=== PATIENT | male | born 1990 | race African-American/Black ===

== ENCOUNTER 2020-03-15 09:40 | Emergency (ER) | payer SELFPAY ==
[2020-03-15 09:41] VITALS: BP 150/89; PULSE 78; RESP 16; TEMP 36.7; O2SAT 97; BMI 35.5
--- NOTE | 2020-03-15 09:59 | EKG12_ITS ---
Test Reason : Blood Pressure : / mmHG Vent. Rate : 063 BPM Atrial Rate : 063 BPM P-R Int : 150 ms QRS Dur : 096 ms QT Int : 420 ms P-R-T Axes : 051 020 -04 degrees QTc Int : 429 ms Normal sinus rhythm Normal ECG Confirmed by ANTHONY BURKS, KYMBERLY ([id number]), editorial clerk MARSHA GALARZA ([id number]) on 03/20/2020 11:06:37 AM Referred By: EDENILSON Confirmed By:KYMBERLY CRUZ MD
--- NOTE | 2020-03-15 10:06 | NURSING ---
NO OLD EKGS
[2020-03-15] MEDS: 0.9% Normal Saline 1,000 ML 1000 ML IV (10:09)
[2020-03-15 10:10] LABS: Absolute Lymphocyte Count 3.03 X10^3/uL (0.83-4.51); Absolute Neutrophil Count 3.8 X10^3/uL (2.0-7.7); Basophil# 0.05 X10^3/uL; Basophil% 0.6 % (0-1); Eosinophil# 0.14 X10^3/uL; Eosinophils% 1.8 % (0-5); Hemoglobin 14.9 g/dL (13.0-16.5); Lymphocyte # 3.03 X10^3/ul (4.0); Lymphocyte % 38.8 % (19-41); Mean Corp Hgb Conc 33.9 g/dL (32-36); Mean Corpuscular Hgb 30.8 pg (27.0-32.0); Mean Corpuscular Volume 90.9 fL (80-94); Mean Platelet Vol. 10.1 fl (6.2-12.0); Monocyte# 0.72 X10^3/uL; Monocyte% 9.2 % (0-10); NRBC Flagged by Analyzer 0 % (0-5); Neutrophil # 3.83 X10^3/uL (2.7-7.7); Neutrophil % 49.2 % (47-70); Platelet Count 219 K/mm3 (150-450); RBC Distribution Width CV 13.2 % (11.6-14.6); RBC Distribution Width SD 43.6 fl (35.1-43.9); Red Blood Count 4.84 M/mm3 (4.6-6.2); White Blood Count 7.8 K/mm3 (4.4-11.0)
[2020-03-15 10:27] LABS: Anion Gap 5 (5-15); BUN 17 mg/dL (7-18); BUN/Creat Ratio 14.4 RATIO (10-20); Calcium,Total 8.9 mg/dL (8.5-10.1); Chloride 107 mmol/L (98-107); Creatinine, Serum 1.18 mg/dL (0.70-1.30); EST Glomerular Filtration Rate 76 mL/min (>60); Est Glom Filt Rate - Afr Amer 93 mL/min (>60); Estimated Creatinine Clearance 102.51 ml/min; Glucose 96 mg/dL (74-106); Potassium 3.8 mmol/L (3.5-5.1); Sodium Level 138 mmol/L (136-145)
--- NOTE | 2020-03-15 10:45 | RAD_ITS ---
STUDY: X-RAY CHEST REASON FOR EXAM: Male, 29 years old. Chest pain and l arm pain and numbness on and off for a couple months TECHNIQUE: Single AP portable view of the chest. COMPARISON: None. FINDINGS: EKG electrodes are seen. The lungs are clear and expanded. There is no demonstrated pleural abnormality. Normal size heart. Normal mediastinum and [place]. Normal visualized pulmonary arteries. Normal visualized aortic arch and descending thoracic aorta. Normal visualized thoracic spine. Normal visualized ribs, clavicles, and shoulders. There is no demonstrated abnormality of the visualized soft tissue structures of the upper abdomen. RAD/Chest 1 View (Portable) IMPRESSION: Normal x-ray examination of the chest. Electronically Signed: Mark Corea, at 11:10 EDT , Service support ,
[2020-03-15 10:47] VITALS: BP 150/116; PULSE 74; RESP 16; O2SAT 99
[2020-03-15 11:19] VITALS: BP 160/100; PULSE 75; RESP 16; O2SAT 98
--- NOTE | 2020-03-15 11:48 | ED.VISSUMM ---
- ER Visit Summary Date of Service: 03/15/20 Chief Complaint: Chest pain History of Present Illness: The patient is a 29 M with no primary care physician. He reports that he has chest pain that began approximately 3 months ago. Intermittent pain lasting approximately 10 seconds at a time in the left chest that radiates to the left shoulder. He describes the pain is sharp. Is 7-10 at worst. Is pain-free currently. Is worsened by nothing. States that it does not seem to be brought on by exertion. It is relieved by movement of his left shoulder. He denies any associated nausea, vomiting, diaphoresis, or shortness of breath. Physical Examination: Vitals: Stable. Afebrile. General: Well-nourished and well-developed. Head: Normocephalic atraumatic. Neck: Supple, no lymphadenopathy. No JVD. Nontender. Cardiovascular: Regular rate and rhythm. No murmurs. Respiratory: No respiratory distress. Clear to auscultation bilaterally. Abdominal: Soft, nontender, nondistended, normal bowel sounds. No guarding, rebound, or peritoneal signs. Back: Nontender. Extremities: Nontender, no edema. Skin: Normal color, no rash. Neurologic: Alert and oriented ?3. Cranial nerves II through XII are intact. Normal strength and sensation. Psych: Normal affect. Test Results: EKG is sinus at [address] changes. Troponin is negative. Chem-7 is normal. CBC is normal. Chest x-ray shows no acute disease. Emergency Department Course and Treatment: Patient is resting comfortably. He is had no pain while here. Treatment Plan: Patient's pain is very atypical. He has no risk factors for coronary artery disease. At this time I feel that he is a suitable candidate for further outpatient evaluation. He will be discharged instructions follow-up Dr. Subramanian in 1 week for another exam. Return to the emergency department for any worsening symptoms. Disposition: To home in improved and stable condition. Impression: 1. Atypical chest pain. This note was generated with [employer] dictation software. It may contain incorrect words, spelling, and punctuation that were not noted in review of the chart prior to signing ED Disposition - Plan for ED Patient: Disposition: Home or Assisted Living Instructions: ED Chest Pain Atypical Unkn Cause Referrals: Colten Tanner MD [STAFF PHYSICIAN] - 1 Week
[2020-03-15 12:17] VITALS: BP 145/90; PULSE 85; RESP 12; O2SAT 98
== END 2020-03-15 12:20 | disposition home or self-care (01) ==
PROVIDERS: Emergency Provider Emergency Medicine
DX: R07.89 Other chest pain (principal); Z72.0 Tobacco use
CPT/HCPCS: 71045; 80048; 84484; 85025; 93005; 99285; A4216

== ENCOUNTER 2023-03-16 10:51 | Emergency (ER) | payer SELFPAY ==
[2023-03-16 10:52] VITALS: BP 186/99; PULSE 107; RESP 18; TEMP 36.5; O2SAT 99; BMI 31.4
[2023-03-16] MEDS: Morphine 4 MG/ML Syringe IM (11:29)
--- NOTE | 2023-03-16 11:37 | ED.VIS.DENTA ---
HPI <YELITZA Peguero - Last Filed: 03/16/23 20:25> History of Present Illness Chief Complaint: Dental Narrative Narrative: Patient presenting today with dental pain. He reports that he has a existing dental fracture to his right maxillary first molar and today he was chewing on a steak bone and fractured it further. He does have a dentist appointment tomorrow morning. He denies any fever/chills. PFSH <YELITZA Peguero - Last Filed: 03/16/23 20:25> PFSH Medical History No acute medical problems Home Medications naproxen 500 mg tablet (Naprosyn) 500 mg PO BID PRN pain 2 days #4 tabs 03/16/23 [Rx Last Taken Unknown] oxycodone-acetaminophen 5 mg-325 mg tablet (Percocet) 1 tab PO Q6H PRN pain 2 days #6 tabs 03/16/23 [Rx Last Taken Unknown] Allergy/AdvReac Type Severity Reaction Status Date / Time No Known Allergies Allergy Verified 03/16/23 11:01 Social History Smoking Status: Current every day smoker tobacco type: cigarettes ROS <YELITZA Peguero - Last Filed: 03/16/23 20:25> ROS ED Constitutional Constitutional ED: Denies chills or fever(s) Cardiovascular Cardiovascular: Denies chest pain Respiratory/Chest Respiratory/Chest: Denies cough or dyspnea Gastrointestinal Gastrointestinal: Denies abdominal pain, nausea or vomiting Musculoskeletal Musculoskeletal: Denies arthralgias or myalgias Integumentary Denies abscess Neurologic Neurologic: Denies weakness EXAM <YELITZA Peguero - Last Filed: 03/16/23 20:25> Physical Exam Const Vital Signs: 03/16/23 10:52 Temperature 97.7 F L Temperature Source Temporal Pulse Rate 107 H Respiratory Rate 18 Blood Pressure 186/99 H Blood Pressure Mean 128 Pulse Ox 99 Oxygen Delivery Method Room Air Positive well nourished, well developed and no apparent distress General Appearance ED: well developed HEENT Reports normocephalic and head/scalp atraumatic HEENT Narrative: Dental fracture to the right maxillary first molar. No bleeding noted. Mouth ED: Yes moist mucous membranes normal Eyes PERRL and EOMs intact bilaterally Neck full ROM and supple Chest Wall inspection of chest normal Resp normal respiratory effort and clear to auscultation bilaterally Cardio regular rate and regular rhythm GI soft to palpation, non-tender, non-distended and no masses Back/Spine normal ROM and normal to inspection Extremity normal to inspection and full ROM Neuro oriented x3, CN's II-XII intact bilaterally, moves all extremities, no focal motor deficits and no sensory deficits noted Sensorium / Orientation: awake and alert Psych mental status grossly normal and thought process normal Skin no rashes or lesions noted and no wounds <Ignacio Summers MD - Last Filed: 03/16/23 20:54> Physical Exam Const Vital Signs: 03/16/23 10:52 Temperature 97.7 F L Temperature Source Temporal Pulse Rate 107 H Respiratory Rate 18 Blood Pressure 186/99 H Blood Pressure Mean 128 Pulse Ox 99 Oxygen Delivery Method Room Air [facility] <YELITZA Peguero - Last Filed: 03/16/23 20:25> [facility] Narrative Medical decision making narrative: Patient presenting today due to a dental fracture to his right maxillary first molar. He had a existing fracture to that tooth and fractured it further while eating a steak bone. He appears to have a class II dental fracture, I am not noticing any bleeding that would suggest stage III. He does appear to be in significant pain and is yelling at the nurse to get him pain medication. I did give him morphine and on repeat examination he reports little improvement. A dental block was performed with bupivacaine, he noted only slight improvement in his symptoms. He has been given a prescription for pain control for home and is to follow-up with the dentist tomorrow morning. He will be discharged home in stable condition and is comfortable with plan. <Ignacio Summers MD - Last Filed: 03/16/23 20:54> [facility] Narrative Medical decision making narrative: Patient presenting today due to a dental fracture to his right maxillary first molar. He had a existing fracture to that tooth and fractured it further while eating a steak bone. He appears to have a class II dental fracture, I am not noticing any bleeding that would suggest stage III. He does appear to be in significant pain and is yelling at the nurse to get him pain medication. I did give him morphine and on repeat examination he reports little improvement. A dental block was performed with bupivacaine, he noted only slight improvement in his symptoms. He has been given a prescription for pain control for home and is to follow-up with the dentist tomorrow morning. He will be discharged home in stable condition and is comfortable with plan. I have personally performed a face to face assessment of the patient and have reviewed the ASA Note. I performed a substantive portion of the visit including all aspects of the following. My martel findings include: History is previous broken tooth right upper first molar, bit into steak bone today and a avulsed tooth even more. Exam is afebrile. Vital signs noted. Regular rate and rhythm, positive tooth avulsion/fractured tooth almost down to gumline right upper jaw first molar. No drooling or trismus. No active bleeding. Medical Decision Making analgesia. He was told the dental block would be temporary. He has an appointment with the dentist tomorrow morning at 8 AM. He will receive a few tablets of narcotic pain medication to get him through the evening. I feel he be discharged safely home with follow-up. Return instructions reviewed. Disposition is discharged home in stable condition. Other additions or changes: [None] Discharge Plan Triage Chief Complaint: Dental ED Midlevel Provider: Lori Barlow ED Provider: Ignacio Summers Dx/Rx/DC Orders Clinical Impression: Pain, dental Instructions: ED Dental Trauma Prescriptions: New oxycodone-acetaminophen [Percocet] 5-325 mg tablet 1 tab PO Q6H PRN (Reason: pain) 2 Days Qty: 6 0RF naproxen [Naprosyn] 500 mg tablet 500 mg PO BID PRN (Reason: pain) 2 Days Qty: 4 0RF Primary Care Provider: Care Physician,No Primary Referrals: Care Physician,No Primary [Primary Care Provider] - Activity Restrictions/Additional Instructions: Please follow-up with a dentist tomorrow. Disposition Disposition: Home, Self Care Discharge Date/Time: 03/16/23 12:54
[2023-03-16] MEDS: Bupivacaine 0.5%/Epi 1.8 ML Syringe INFILT (12:17)
== END 2023-03-16 12:54 | disposition home or self-care (01) ==
LOC: ED 12:32
PROVIDERS: Emergency Provider Emergency Medicine; Visit Provider Emergency Medicine
DX: K08.89 Other specified disorders of teeth and supporting structures (principal); F17.210 Nicotine dependence, cigarettes, uncomplicated
CPT/HCPCS: 96372; 99281; 99282

== ENCOUNTER 2023-06-02 11:15 | Emergency (ER) | payer SELFPAY ==
[2023-06-02 11:17] VITALS: BP 139/99; PULSE 83; RESP 16; TEMP 35.9; O2SAT 100; BMI 32.4
--- NOTE | 2023-06-02 12:05 | CT_ITS ---
STUDY: CT BRAIN WITHOUT CONTRAST REASON FOR EXAM: Male, 32 years old. Headache. Visual changes. RADIATION DOSAGE (If Supplied By Facility): CTDIvol = ( 44.99 ) mGy, DLP = ( 796.11 ) mGycm TECHNIQUE: Transaxial CT imaging of the brain was performed without administration of intravenous contrast material. Individualized dose optimization techniques were used for this CT. COMPARISON: No relevant priors. FINDINGS: Normal soft tissue structures. Normal calvarium. Normal size ventricles and extra-axial spaces for the patient''s age. Normal white matter tracts of the cerebral hemispheres. Normal basal ganglia and thalami. Normal brainstem. Normal cerebellum. There is no intracranial hemorrhage. There are no findings of an acute ischemic infarction. Air-fluid level in the left sphenoid sinus. Fullness of the posterior left nasal fossa with thickening of the mucosa of the ethmoid sinuses. CT/Brain/Head without Contrast IMPRESSION: Normal unenhanced CT scan of the brain. Air-fluid level is seen in the left sphenoid sinus with a soft tissue fullness in the posterior left nasal fossa and mucosal thickening of the ethmoid sinuses. Electronically Signed: Mark Corea MD at 12:46 EDT ,
[2023-06-02] MEDS: Tetracaine 0.5% Ophthalmic Bottle 1 DRP RIGHT EYE (12:44)
--- NOTE | 2023-06-02 12:54 | EX.ED.VIS.EY ---
HPI <KRYSTEN Martin - Last Filed: 06/02/23 14:41> History of Present Illness Chief Complaint: Eye Problem Narrative Narrative: Patient is a 32-year-old male with no significant medical history presents to the emergency department with a headache for the last 2 months. Patient dates he was seen here 2 months ago, he had an injection of Marcaine in his right upper gum, since then, the patient states has been having pain to the right eye, as well as to the top of the head. Patient states that he did have some blurred vision a couple days ago. Patient states that his eye feels very heavy, he feels pressure behind the eye. He denies any vision change at this time. He also states of excessive tearing. PFSH <KRYSTEN Martin - Last Filed: 06/02/23 14:41> PFSH Medical History No acute medical problems Home Medications naproxen 500 mg tablet (Naprosyn) 500 mg PO BID PRN pain 2 days #4 tabs 03/16/23 [Rx Last Taken Unknown] oxycodone-acetaminophen 5 mg-325 mg tablet (Percocet) 1 tab PO Q6H PRN pain 2 days #6 tabs 03/16/23 [Rx Last Taken Unknown] Allergy/AdvReac Type Severity Reaction Status Date / Time No Known Allergies Allergy Verified 06/02/23 11:17 Social History Smoking Status: Current every day smoker tobacco type: cigarettes ROS <KRYSTEN Martin - Last Filed: 06/02/23 14:41> ROS ED ROS Narrative Constitutional: Negative for fever, chills, weight loss, weakness Eyes: Negative for vision loss, vision change, double vision. Positive for vision change, right eye pain ENT: Negative for any sore throat, ear pain, congestion Cardiovascular: Negative for any chest pain, tightness, palpitations Respiratory: Negative for any cough, sputum production, hemoptysis, dyspnea, dyspnea on exertion, orthopnea Gastrointestinal: Negative for any abdominal pain, nausea, vomiting, diarrhea, constipation, blood in stool, blood in vomit : Negative for any urinary frequency, dysuria, retention, blood in urine Muscle skeletal: Negative for any muscle joint pain, stiffness, myalgias, arthralgias, neck pain, back pain Neurological: Negative for any syncope, numbness or tingling, dizziness. Positive for headache Skin: Negative for any rashes, lumps, itching, abrasions, lacerations Psychiatric: Negative for any depression, anxiety, stress, suicidal ideation, homicidal ideation Hematologic: Negative for any easy bruising, excessive bruising, easy bleeding Allergies: Negative for any eczema, hives, rash EXAM <KRYSTEN Martin - Last Filed: 06/02/23 14:41> Physical Exam Narrative Exam Narrative: Vital signs reviewed. HEET: Head normocephalic atraumatic, TMs clear bilaterally. Posterior pharynx is clear, moist mucous membranes. Nares clear bilaterally. Pupils are equal round reactive to light. Patient does show from photophobia in the right eye. There is no injection. There is no evidence of foreign body. Right eye pressure is 15. This is normal. Neck: Supple with no lymphadenopathy or tenderness. No signs of meningismus, negative jolt sign. Cardiac: Regular rate and rhythm no murmurs gallops or rubs, equal peripheral pulses bilaterally. Respiratory: Lungs clear to auscultation bilaterally. No chest tenderness. Abdomen: Soft, nontender, nondistended. No abdominal bruit or pulsatile masses. No hepatosplenomegaly Extremities: No peripheral edema, no signs of gross trauma or deformity. Active full range of motion of all extremities. Neuro: Cranial nerves II through XII intact, no focal neurological deficits. NIH stroke scale 0 Skin: Clean dry and intact with no rash, purpura, petechiae, vesicles or pustules. Backs/flank: No CVA tenderness, no midline spinal tenderness, no deformity. Psych: Normal mood and affect. No SI, HI or acute psychosis. Const Vital Signs: 06/02/23 11:17 Temperature 96.7 F L Temperature Source Temporal Pulse Rate 83 Respiratory Rate 16 Blood Pressure 139/99 H Blood Pressure Mean 112 Pulse Ox 100 Oxygen Delivery Method Room Air MDM <KRYSTEN Martin - Last Filed: 06/02/23 14:41> MDM Radiography Diagnostic Testing: Clinical Impression(s) from Imaging Studies Brain CT 06/02/23 12:05 IMPRESSION: Normal unenhanced CT scan of the brain. Air-fluid level is seen in the left sphenoid sinus with a soft tissue fullness in the posterior left nasal fossa and mucosal thickening of the ethmoid sinuses. Electronically Signed: Mark Corea MD at 12:46 EDT , Treatment and Re-Evaluation Narrative: Patient appears generally well, patient appears nontoxic, vital signs are stable. Presenting to the emergency department with 2 months of headache, right pressure, right eye tearing and pain. Patient did receive a CT scan of the brain, this showed a normal and and CT of the brain. There are some air-fluid levels that are seen in the left sphenoid sinus with soft tissue fullness in the posterior left nasal fossa and mucosal thickening of the ethmoid sinuses. Patient eye exam showed a pressure of 15 which is within normal limits. Patient had a negative CT scan of the brain. At this time, patient will be treated for an optic migraine. Patient be given IV fluids, Benadryl, Toradol, Reglan. Patient will also have some basic laboratory values drawn. Patient was difficult to obtain IV access, blood work could not be obtained, patient did not have an IV. Patient was given the Benadryl Toradol and Reglan IM. On reevaluation after 30 minutes, the patient felt much better. Patient has decreased pressure to his eye, patient is headache is tolerable, he also states that his vision is improved. At this time, there is no evidence of any stroke, TIA, acute angle glaucoma. Patient will need to follow-up with ophthalmology, he will receive a work note. He feels much better would like to be discharged, I did give him return precautions. Patient stable for discharge <Dr. Uriel Benitez, DO - Last Filed: 06/02/23 14:51> [facility] Treatment and Re-Evaluation Narrative: Patient appears generally well, patient appears nontoxic, vital signs are stable. Presenting to the emergency department with 2 months of headache, right pressure, right eye tearing and pain. Patient did receive a CT scan of the brain, this showed a normal and and CT of the brain. There are some air-fluid levels that are seen in the left sphenoid sinus with soft tissue fullness in the posterior left nasal fossa and mucosal thickening of the ethmoid sinuses. Patient eye exam showed a pressure of 15 which is within normal limits. Patient had a negative CT scan of the brain. At this time, patient will be treated for an optic migraine. Patient be given IV fluids, Benadryl, Toradol, Reglan. Patient will also have some basic laboratory values drawn. Patient was difficult to obtain IV access, blood work could not be obtained, patient did not have an IV. Patient was given the Benadryl Toradol and Reglan IM. On reevaluation after 30 minutes, the patient felt much better. Patient has decreased pressure to his eye, patient is headache is tolerable, he also states that his vision is improved. At this time, there is no evidence of any stroke, TIA, acute angle glaucoma. Patient will need to follow-up with ophthalmology, he will receive a work note. He feels much better would like to be discharged, I did give him return precautions. Patient stable for discharge I have personally performed a face to face assessment of the patient and have reviewed the ASA Note. I performed a substantive portion of the visit including all aspects of the following. My martel findings include: History is patient sent from urgent care with a black spot in his vision. Apparently has had right frontal pain since the Marcaine injection couple months ago. No fevers or rashes. Not tender over the temporal artery. Funduscopic exam appears normal. Pressures are normal. CT the brain shows some sinusitis which will be treated with. He reports right eye pain and tearing but there is no redness. EOMI PERRL. Please see nurse practitioner. Note. Follow-up weekly with ophthalmology and primary care. If continued symptoms no definitive findings would consider neurologic evaluation. Discharge Plan Triage Chief Complaint: Eye Problem Other Complaint: Headache ED Midlevel Provider: Tom King ED Provider: Uriel Benitez Dx/Rx/DC Orders Clinical Impression: Vision changes, Migraine Instructions: Understanding Vision Problems, Prevention Men 18 To 39, ED, Migraine (Classical) Prescriptions: No Action oxycodone-acetaminophen [Percocet] 5-325 mg tablet 1 tab PO Q6H PRN (Reason: pain) 2 Days Qty: 6 0RF naproxen [Naprosyn] 500 mg tablet 500 mg PO BID PRN (Reason: pain) 2 Days Qty: 4 0RF Stand Alone Forms: ED Work / School Excuse Primary Care Provider: Care Physician,No Primary Referrals: Emiliano Holguin MD [Med Staff - Active Staff] - Care Physician,No Primary [Primary Care Provider] - Activity Restrictions/Additional Instructions: You need to follow-up with ophthalmology. Please return here for worsening vision changes. Disposition Disposition: Home, Self Care Discharge Date/Time: 06/02/23 14:47
[2023-06-02] MEDS: Ketorolac 15 MG/ML Vial IV (13:21)
[2023-06-02] MEDS: DiphenhydrAMINE 50 MG/ML Syringe 25 MG IV (13:21)
[2023-06-02] MEDS: 0.9% Normal Saline (1000mL) 1,000 ML 999 ML IV (13:21)
[2023-06-02] MEDS: Metoclopramide 10 MG/2 ML Vial IV (13:21)
== END 2023-06-02 14:47 | disposition home or self-care (01) ==
PROVIDERS: Emergency Provider Emergency Medicine; Visit Provider Emergency Medicine
DX: G43.909 Migraine, unspecified, not intractable, without status migrainosus (principal); F17.210 Nicotine dependence, cigarettes, uncomplicated
CPT/HCPCS: 70450; 96361; 96374; 96375; 99282; J7030; A4216

== ENCOUNTER 2025-01-08 10:47 | Emergency (ER) | payer SELFPAY ==
[2025-01-08 10:47] VITALS: BP 156/91; PULSE 81; RESP 16; TEMP 36.9; O2SAT 100; BMI 31.9
--- NOTE | 2025-01-08 11:19 | CT_ITS ---
EXAM: CT Head Without Intravenous Contrast CLINICAL INDICATION: DYSEQUILIBRIUM, BLE WEAK/NUMB TECHNIQUE: Axial computed tomography images of the head/brain without intravenous contrast. This CT exam was performed using one or more of the following dose reduction techniques: automated exposure control, adjustment of the mA and/or kV according to patient size, and/or use of iterative reconstruction technique. COMPARISON: CT Head dated 06/02/2023 FINDINGS: BRAIN AND EXTRA-AXIAL SPACES: No acute intracranial hemorrhage, midline shift or mass effect. If symptoms persist, further evaluation with MRI is recommended. No significant white matter disease. BONES/JOINTS: Unremarkable. No acute fracture. SOFT TISSUES: Unremarkable. SINUSES: Unremarkable as visualized. No acute sinusitis. MASTOID AIR CELLS: Unremarkable as visualized. No mastoid effusion. CT/Brain/Head without Contrast IMPRESSION: 1. No acute intracranial hemorrhage, midline shift or mass effect. If symptoms persist, further evaluation with MRI is recommended. 2. No significant change from the prior exam. Reading Location: [id number]
--- NOTE | 2025-01-08 11:21 | CT_ITS ---
EXAM: CT Abdomen and Pelvis With Intravenous Contrast CLINICAL INDICATION: INTERMITTENT RUQ PAIN, WEAK/NUMB BELOW WAIST TECHNIQUE: Axial computed tomography images of the abdomen and pelvis with intravenous contrast. This CT exam was performed using one or more of the following dose reduction techniques: automated exposure control, adjustment of the mA and/or kV according to patient size, and/or use of iterative reconstruction technique. COMPARISON: No relevant prior studies available. FINDINGS: LUNG BASES: Unremarkable. No mass. No consolidation. MEDIASTINUM: Small esophageal hiatal hernia. ABDOMEN: LIVER: Hepatomegaly with fatty infiltration. GALLBLADDER AND BILE DUCTS: Unremarkable. No calcified stones. No ductal dilation. PANCREAS: Unremarkable. No mass. No ductal dilation. SPLEEN: Unremarkable. No splenomegaly. ADRENALS: Unremarkable. No mass. KIDNEYS AND URETERS: Unremarkable. No solid mass. No hydronephrosis. STOMACH AND BOWEL: Unremarkable. No obstruction. No mucosal thickening. PELVIS: APPENDIX: Appendix is not clearly visualized. No significant fat stranding in the right lower abdominal quadrant to suggest acute inflammation. BLADDER: Unremarkable. No mass. REPRODUCTIVE: Unremarkable as visualized. ABDOMEN and PELVIS: INTRAPERITONEAL SPACE: Unremarkable. No free air. No significant fluid collection. BONES/JOINTS: No acute fracture. No dislocation. SOFT TISSUES: Umbilical hernia containing fat. VASCULATURE: Unremarkable. No abdominal aortic aneurysm. LYMPH NODES: Unremarkable. No enlarged lymph nodes. CT/Abdomen/Pelvis W IV Cont ONLY IMPRESSION: 1. Small esophageal hiatal hernia. 2. Hepatomegaly with fatty infiltration. 3. Umbilical hernia containing fat. 4. Appendix is not clearly visualized. No significant fat stranding in the rig ht lower abdominal quadrant to suggest acute inflammation. Reading Location: [id number]
--- NOTE | 2025-01-08 11:21 | EX.ED.DYSGE1 ---
HPI History of Present Illness Chief Complaint: General Illness Informant: patient Narrative Narrative: Healthy 34-year-old male presenting with symptoms of disequilibrium, numbness from the waist down for 6 weeks or more. He does not have a PCP, his legs been giving out on him on occasion, and the numbness seems to be escalating into his buttocks, so he came to be evaluated for the first time for this. 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 He denies any low back pain. No headache, tinnitus, vision changes, upper extremity neurologic symptoms, but he has also been having some intermittent right upper quadrant pain and swelling and joint pains especially in his knees. [facility] Medical History No acute medical problems Home Medications ?Medication ?Instructions ?Recorded ?Last Taken ?Type cholecalciferol (vitamin D3) 25 25 mcg PO DAILY 01/08/25 01/08/25 History mcg (1,000 unit) capsule omeprazole 20 mg capsule,delayed 20 mg PO DAILY #30 caps 01/08/25 Unknown Rx release Allergy/AdvReac Type Severity Reaction Status Date / Time No Known Allergies Allergy Verified 01/08/25 10:47 Social History Smoking Status: Current every day smoker tobacco type: cigarettes ROS ROS ED Constitutional Constitutional ED: Denies chills or fever(s) Eyes Eyes: Denies change in vision or diplopia ENT ENT ED: Denies ear pain, rhinorrhea, sore throat, tinnitus or vertigo Cardiovascular Cardiovascular: Denies chest pain or palpitations Respiratory/Chest Respiratory/Chest: Denies cough or dyspnea Gastrointestinal Gastrointestinal: Reports abdominal pain; Denies diarrhea, nausea or vomiting Genitourinary Genitourinary ED: Reports other Details: No bowel or bladder dysfunction. No saddle anesthesia or perianal anesthesia. ; Denies dysuria or hematuria Musculoskeletal Musculoskeletal: Denies back pain or neck pain Integumentary Denies abscess or rash Neurologic Neurologic: Reports disequilibrium, paresthesias RLE and LLE and other Details: Legs intermittently give out, but not constantly weak. He thinks it is because of numbness and difficulty sensing. ; Denies dizziness, focal weakness or headache(s) Psychiatric Psychiatric: Denies suicidal thoughts EXAM Physical Exam Const Vital Signs: 01/08/25 10:47 01/08/25 11:48 01/08/25 12:47 Temperature 98.4 F Temperature Source Oral Pulse Rate 81 75 Respiratory Rate 16 Respiratory Effort Normal Non-Labored Respiratory Pattern Normal Blood Pressure 156/91 H 120/87 H Blood Pressure Mean 112 98 Pulse Ox 100 99 Oxygen Delivery Method Room Air 01/08/25 14:00 Temperature Temperature Source Pulse Rate 78 Respiratory Rate Respiratory Effort Respiratory Pattern Blood Pressure 130/85 H Blood Pressure Mean 100 Pulse Ox 98 Oxygen Delivery Method Positive well nourished and well developed General Appearance ED: well developed and NAD HEENT Reports moist mucous membranes normocephalic and atraumatic Eyes PERRL and EOMs intact bilaterally Neck full ROM and supple Resp normal respiratory effort and clear to auscultation bilaterally Cardio regular rate, regular rhythm and no murmurs GI non-tender and non-distended Auscultation: normoactive bowel sounds Palpation: soft Back/Spine no CVA tenderness General Back: other FROM Extremity normal to inspection Extremity Narrative: 2+/4 dorsalis pedis pulses bilaterally are symmetric. General Extremety ED: Negative for edema, pulses abnormal or tenderness General Extremity: Negative for edema or pulses abnormal Neuro oriented x3, CN's II-XII intact bilaterally and no sensory deficits noted Neuro Narrative: DTRs normal in upper extremities but mildly hyperreflexic symmetrically in lower extremities. Toes downgoing bilaterally. No pathologic clonus, just a couple beats bilaterally. Normal [id number] and [id number] bilaterally. Sensorium / Orientation: awake and alert Motor Exam: strength 5/5 throughout Psych mental status grossly normal Skin no rashes or lesions noted and no wounds MDM MDM MDM Narrative Medical decision making narrative: Labs are unremarkable. I performed a CT of the abdomen/pelvis in order to get a view of the spine as well, I reviewed the images and the report which I agree with, it is negative for any acute, there is nothing in the back that shows up on CT although this is certainly not sensitive for disc disease. I discussed the hiatal hernia with the patient, this may be causing some of his abdominal discomfort intermittently. Given his disequilibrium and neurologic symptoms also did a CT of his brain, I reviewed those images and the report which I agree with it is negative for anything acute. I discussed all this with Dr. Stephens who is on for spine. Patient is able to walk, he has some occasional giving out of his legs possible weakness but the majority of time they are not, symptoms or findings result of conus medullary syndrome or cauda equina syndrome. He states it would be reasonable for the patient to follow-up as an outpatient for evaluation and then possible outpatient MRI x-ray imaging, which we did not have available today on the weekend at the hospital to do emergently. Lab Data Attestation: I reviewed the patient's lab results. Labs: Laboratory Results - last 24 hr 01/08/25 01/08/25 01/08/25 11:28 13:11 13:48 WBC 8.0 RBC 5.05 Hgb 15.6 Hct 46.6 MCV 92.3 MCH 30.9 MCHC 33.5 RDW Std Deviation 46.8 H RDW Coeff of Brooke 13.7 Plt Count 219 MPV 9.8 Immature Gran % (Auto) 0.400 Neut % (Auto) 58.1 Lymph % (Auto) 33.6 [place] % (Auto) 6.1 Eos % (Auto) 1.1 Baso % (Auto) 0.7 Absolute Neuts (auto) 4.7 Absolute Lymphs (auto) 2.69 Nucleated RBC % 0 Sodium Cancelled Cancelled 138 Potassium Cancelled Cancelled 4.2 Chloride Cancelled Cancelled 104 Carbon Dioxide Cancelled Cancelled 22.0 Anion Gap Cancelled Cancelled 12 BUN Cancelled Cancelled 16 Creatinine Cancelled Cancelled 1.19 Estim Creat Clear Calc Cancelled Cancelled 111.49 Est GFR (MDRD) Non-Af Cancelled Cancelled 81 BUN/Creatinine Ratio Cancelled Cancelled 13.2 Glucose Cancelled Cancelled 70 Calcium Cancelled Cancelled 9.4 Total Bilirubin Cancelled Cancelled 0.29 AST Cancelled Cancelled 25 ALT Cancelled Cancelled 15 Alkaline Phosphatase Cancelled Cancelled 59 Total Protein Cancelled Cancelled 7.3 Albumin Cancelled Cancelled 4.3 Globulin Cancelled Cancelled 3.0 Albumin/Globulin Ratio Cancelled Cancelled 1.4 Radiography Diagnostic Testing: Clinical Impression(s) from Imaging Studies Brain CT 01/08/25 11:19 IMPRESSION: 1. No acute intracranial hemorrhage, midline shift or mass effect. If symptoms persist, further evaluation with MRI is recommended. 2. No significant change from the prior exam. Reading Location: [facility] Abdomen/Pelvis CT 01/08/25 11:21 IMPRESSION: 1. Small esophageal hiatal hernia. 2. Hepatomegaly with fatty infiltration. 3. Umbilical hernia containing fat. 4. Appendix is not clearly visualized. No significant fat stranding in the right lower abdominal quadrant to suggest acute inflammation. Reading Location: [facility] Discharge Plan Triage Chief Complaint: General Illness ED Provider: Jerry Harrsi Dx/Rx/DC Orders Clinical Impression: Numbness and tingling of both lower extremities, Intermittent right upper quadrant abdominal pain, Dysequilibrium, Hiatal hernia Instructions: What Is a Hiatal Hernia?, ED Paraesthesias Prescriptions: New omeprazole 20 mg capsule,delayed release(DR/EC) 20 mg PO DAILY Qty: 30 0RF No Action cholecalciferol (vitamin D3) 25 mcg (1,000 unit) capsule 25 mcg PO DAILY Primary Care Provider: Care Physician,No Primary Referrals: Miguel A Stephens MD [Med Staff - Active Staff] - As soon as possible (call for appt) Print Language: Wallisian Disposition Disposition: Home, Self Care
[2025-01-08 11:38] LABS: Absolute Lymphocyte Count 2.69 X10^3/uL (0.83-4.51); Absolute Neutrophil Count 4.7 X10^3/uL (2.0-7.7); Basophil# 0.06 X10^3/uL; Basophil% 0.7 % (0-1); Eosinophil# 0.09 X10^3/uL; Eosinophils% 1.1 % (0-5); Hematocrit 46.6 % (40-54); Hemoglobin 15.6 g/dL (13.0-16.5); Lymphocyte # 2.69 X10^3/ul (0.83-4.51); Lymphocyte % 33.6 % (19-41); Mean Corp Hgb Conc 33.5 g/dL (32-36); Mean Corpuscular Hgb 30.9 pg (27.0-32.0); Mean Corpuscular Volume 92.3 fL (80-94); Mean Platelet Vol. 9.8 fl (6.2-12.0); Monocyte# 0.49 X10^3/uL; Monocyte% 6.1 % (0-10); NRBC Flagged by Analyzer 0 % (0-5); Neutrophil # 4.65 X10^3/uL (2.7-7.7); Neutrophil % 58.1 % (47-70); Platelet Count 219 K/mm3 (150-450); RBC Distribution Width CV 13.7 % (11.6-14.6); RBC Distribution Width SD 46.8 fl (35.1-43.9); Red Blood Count 5.05 M/mm3 (4.6-6.2)
[2025-01-08 12:47] VITALS: BP 120/87; PULSE 75; O2SAT 99
[2025-01-08 14:00] VITALS: BP 130/85; PULSE 78; O2SAT 98
[2025-01-08 14:40] LABS: ALB/GLOB Ratio 1.4 RATIO (0.9-2.4); AST(SGOT) 25 U/L (<=37); Alanine Aminotransfer ALT/SGPT 15 U/L (<=46); Albumin, Serum 4.3 g/dL (3.5-5.0); Alkaline Phosphatase 59 U/L (40-129); Anion Gap 12 (5-15); BUN 16 mg/dL (4-19); BUN/Creat Ratio 13.2 RATIO (10-20); Calcium,Total 9.4 mg/dL (7.6-11.0); Chloride 104 mmol/L (98-108); Creatinine, Serum 1.19 mg/dL (0.70-1.20); EST Glomerular Filtration Rate 81 (>60); Estimated Creatinine Clearance 111.49 ml/min (50-250); Glucose 70 mg/dL (70-99); Potassium 4.2 mmol/L (3.3-5.1); Protein, Total 7.3 g/dL (5.9-8.4); Sodium Level 138 mmol/L (133-145); Total Bilirubin 0.29 mg/dL (0.00-1.30)
[2025-01-08 15:26] VITALS: BP 130/70; PULSE 75; RESP 14; TEMP 36.6; O2SAT 100
== END 2025-01-08 15:27 | disposition home or self-care (01) ==
PROVIDERS: Emergency Provider Emergency Medicine; Visit Provider Emergency Medicine
DX: R20.2 Paresthesia of skin (principal); R20.0 Anesthesia of skin; R10.11 Right upper quadrant pain; K44.9 Diaphragmatic hernia without obstruction or gangrene; F17.210 Nicotine dependence, cigarettes, uncomplicated
CPT/HCPCS: 36415; 70450; 74177; 80053; 85025; 99282; Q9967; A4216